=== PATIENT | male | born 1960 | race Caucasian/White ===

== ENCOUNTER 2017-07-31 08:07 | Day surgery (SDC) | payer MEDICAID ==
[2017-07-31] VITALS (9 sets, daily range): BP systolic 104–127; BP diastolic 56–83
[~2017-07-31] VITALS: Ht 185.4 cm; Wt 99.8 kg
--- NOTE | 2017-07-31 06:59 | Anethesia Preoperative Eval ---
Anesthesia Pre-op PMH/ROS General Date of Evaluation: Jul 31, 2017 Time of Evaluation: 06:58 Anesthesiologist: vira ASA Score: ASA 3 Mallampati Score Class I : Soft palate, uvula, fauces, pillars visible Class II: Soft palate, uvula, fauces visible Class III: Soft palate, base of uvula visible Class IV: Only hard plate visible Mallampati Classification: Class II Surgeon: brian Diagnosis: gerd, colon screening Surgical Procedure: egd/colonoscopy Anesthesia History: none Social History: smoking - nonsmoker Family History: no anesthesia problems Allergies: Coded Allergies: No Known Allergies (Unverified , 07/28/17) Medications: see eMAR Past Medical History Cardiovascular: Reports: HTN, other - hypercholesterolemia Neurologic/Psychiatric: Reports: depression/anxiety Hematology/Immune: Reports: other Anesthesia Pre-op Phys. Exam Physician Exam Last Vital Signs Date Time Temp Pulse Resp B/P (MAP) Pulse Ox O2 Delivery O2 Flow Rate FiO2 07/31/17 08:34 97.5 63 18 125/56 97 Room Air Constitutional: NAD Neurologic: CN 2-12 intact Cardiovascular: RRR Respiratory: CTA Gastrointestinal: S/NT/ND Airway Exam Mallampati Score: Class II MO: full Neck: supple TMD: 2fb ROM: full Teeth: intact Anesthesia Pre-op A/P Risk Assessment & Plan Assessment: asa3 Plan: mac Status Change Before Surgery: No Pre-Antibiotics Drug: HARPER Mccray Jul 31, 2017 06:59
[2017-07-31] MEDS ORDERED: LISINOPRIL20 MG ORAL (08:26)
[2017-07-31] MEDS ORDERED: LIPITOR80 MG ORAL (08:26)
[2017-07-31] MEDS ORDERED: DiphenhydrAMINE 50mg/ml Inj IVP PRN (08:45)
[2017-07-31] MEDS ORDERED: Midazolam 2mg/2ml Inj IVP PRN (08:45)
[2017-07-31] MEDS ORDERED: Atropine Inj 1mg/10ml Syr IV PRN (08:45)
[2017-07-31] MEDS ORDERED: fentaNYL 100 mcg/2 mL IV PRN (08:45)
[2017-07-31] MEDS ORDERED: Propofol 200mg/20ml IV ONE (10:00)
[2017-07-31] MEDS ORDERED: Lidocaine 1% MPF 10mg/ml 5ml ONE (10:00)
--- NOTE | 2017-07-31 10:04 | Pre-Procedure Note/Attestation ---
Pre-Procedure Note/Attestation Complete Prior to Procedure Planned Procedure: not applicable Procedure Narrative: esophagogastroduodenoscopy and colonoscopy Indications for Procedure Pre-Operative Diagnosis: screening colon, GERD Attestation I attest that I discussed the nature of the procedure; its benefits; risks and complications; and alternatives (and the risks and benefits of such alternatives ), prior to the procedure, with the patient (or the patient's legal motor vehicle representative). I attest that, if there was a reasonable possibility of needing a blood transfusion, the patient (or the patient's legal motor vehicle representative) was given the [facility] standardized written summary, pursuant to the Jaxson Ullin Blood Safety Act ([place] Health and Safety Code # 1645, as amended). I attest that I re-evaluated the patient just prior to the surgery and that there has been no change in the patient's H&P, except as documented below: CRISTIAN CAT Jul 31, 2017 10:04
--- NOTE | 2017-07-31 10:06 | Short Stay Surgery H&P ---
History of Present Illness History of Present Illness Chief Complaint screening colon, GERD HPI Chi Rosa is a 57 year old male who was admitted on for Gerd, Colon Screening Patient History Allergies: Coded Allergies: No Known Allergies (Unverified , 07/28/17) PAST MEDICAL HISTORY: (1) HTN (hypertension) (2) Hypercholesteremia Past Surgeries: Social History: Medication History Scheduled Atorvastatin (Lipitor), 150 MG ORAL DAILY, (Reported) Lisinopril (Lisinopril*), 30 MG ORAL DAILY, (Reported) Review of Systems Cardiovascular: Reports: no symptoms Respiratory: Reports: no symptoms Gastrointestinal: Reports: gastro esophageal reflux disease Genitourinary: Reports: no symptoms Neurologic: Reports: no symptoms Endocrine: Reports: no symptoms Hematologic: Reports: no symptoms Physical Exam Vital Signs Last Vital Signs Date Time Temp Pulse Resp B/P (MAP) Pulse Ox O2 Delivery O2 Flow Rate FiO2 07/31/17 08:34 97.5 63 18 125/56 97 Room Air Skin: normal HENT: normal Heart: normal Lungs: normal Abdomen: normal Extremities: normal Plan Plan of Care EGD colonoscopy Final Diagnosis: Attestation Are the patient's medical conditions optimized for surgery? Attestation Response: yes CRISTIAN CAT Jul 31, 2017 10:05
--- NOTE | 2017-07-31 10:35 | Endoscopy Procedure Note ---
Endoscopy Procedure Note Indication for Procedure: screening colon, GERD Procedures Performed: EGD, colonoscopy Operative Findings/Diagnosis: gastritis, one colon polyp Specimen: yes Pt Tolerated Procedure Well: Yes Estimated Blood Loss: none Anesthesiologist: radha Anesthesia: MAC Implant(s) used?: No 50 yrs or older w/o bx or poly: No 10yrs. F/U not recommended: Yes If not recommended, why?: Above average risk 10 yrs. F/U needed: Yes 18 years or older w/prev. colo: Yes <3yrs. since last colonoscopy: No CRISTIAN CAT Jul 31, 2017 10:35
--- NOTE | 2017-07-31 11:37 | Immediate Post-Op Evaluation ---
Immediate Post-Op Evalulation Immediate Post-Op Evalulation Procedure: egd/colonoscopy Date of Evaluation: Jul 31, 2017 Time of Evaluation: 11:02 IV Fluids: 500ml 0.9ns Blood Products: none Estimated Blood Loss: negligible Blood Pressure Systolic: 110 Blood Pressure Diastolic: 68 Pulse Rate: 58 Respiratory Rate: 18 O2 Sat by Pulse Oximetry: 100 Temperature (Fahrenheit): 97.3 Pain Score (1-10): 0 Nausea: No Vomiting: No Complications none Patient Status: awake, reacts, patent Hydration Status: adequate Drug: HARPER Mccray Jul 31, 2017 11:37
--- NOTE | 2017-07-31 11:39 | 48 Hour Post Anesthesia Eval ---
Post Anesthesia Evaluation Procedure: egd/colonoscopy Date of Evaluation: Jul 31, 2017 Time of Evaluation: 11:10 Blood Pressure Systolic: 115 0: 70 Pulse Rate: 67 Respiratory Rate: 18 Temperature (Fahrenheit): 97.3 O2 Sat by Pulse Oximetry: 100 Airway: patent Nausea: No Vomiting: No Pain Intensity: 0 Hydration Status: adequate Cardiopulmonary Status: stable Mental Status/LOC: patient returned to baseline Post-Anesthesia Complications: none Follow-up care needed: N/A HARPER KERR Jul 31, 2017 11:39
--- NOTE | 2017-07-31 20:00 | Procedure Note ---
DATE OF PROCEDURE: 07/31/2017 SURGEON: Elkin Bishop M.D. PROCEDURE: Upper endoscopy with biopsy and colonoscopy with biopsy. ANESTHESIA: Per Maggie Veloz M.D. INSTRUMENT: Olympus adult flexible upper endoscope and colonoscope. INDICATION: Screening colonoscopy evaluation, family history of colon malignancies, chronic gastroesophageal reflux disease. REASON FOR PROCEDURE: The procedure, risks, benefits, and possible consequences, including hemorrhage, aspiration, perforation and infection, and alternative treatments, were explained to the patient/legal guardian by Dr. Elkin Bishop and the patient/legal guardian understood and accepted these risks. DESCRIPTION OF PROCEDURE: After informed consent was obtained and the patient was adequately sedated, Olympus upper endoscope was advanced from mouth into the portion of duodenum and retroflexion was performed in stomach. The patient has a small hiatal hernia with minimum distal esophagitis right at the junction between the esophagus and the stomach. In the stomach, there was diffuse gastritis. Random biopsy from body and antrum was obtained to rule out H. pylori infection. At this time, the upper endoscope was retrieved and the patient was turned over for colonoscopy. First, a rectal exam was performed, which shows positive for internal hemorrhoids. Then, the scope was advanced from rectum into the cecum documented by appendiceal orifice, ileocecal valve, and upper quadrant palpation. Quality of prep was very good. The patient had a small diminutive polyp in the proximal ascending colon, which was removed with cold biopsy forceps technique. Otherwise, the rest of the colonoscopy examination looked within normal limit. Retroflexion of rectum showed evidence of internal hemorrhoid. The patient tolerated the procedure very well without complication. FINDINGS: 1. A small hiatal hernia with minimum distal esophagitis. 2. Diffuse gastritis status post biopsy. 3. Internal hemorrhoids. 4. One colonic polyp removed from the ascending colon. RECOMMENDATIONS: Followup biopsy results and treat accordingly. I want to thank, Dr. Yessi Ring, for this kind referral. Elkin Bishop M.D. DR: Yemi JOB#: [id number] CC: Yessi Ring M.D.; Fax#: [phone]
--- NOTE | 2017-08-11 15:52 | Cardiology Report ---
APPROVED REPORT EKG Measurement Heart [id number] Normal sinus rhythm Early repolarization Normal ECG
== END 2017-07-31 11:50 | disposition home or self-care (01) ==
LOC: GAS 08:07
DX: Z12.11 Encounter for screening for malignant neoplasm of colon (principal); K21.9 Gastro-esophageal reflux disease without esophagitis; K44.9 Diaphragmatic hernia without obstruction or gangrene; K64.8 Other hemorrhoids; K29.50 Unspecified chronic gastritis without bleeding; D12.6 Benign neoplasm of colon, unspecified; I10 Essential (primary) hypertension; E78.00 Pure hypercholesterolemia, unspecified; F41.9 Anxiety disorder, unspecified; F32.9 Major depressive disorder, single episode, unspecified; Z80.0 Family history of malignant neoplasm of digestive organs
CPT/HCPCS: 43239; 45380; 93005; J2704; Z7512; 94003; 94150